=== PATIENT | female | born 1985 | race African-American/Black ===

== ENCOUNTER 2016-09-05 17:50 | Emergency (ER) | payer SELFPAY ==
[~2016-09-05] VITALS: Ht 165.1 cm; Wt 124.7 kg
[~2016-09-05 17:50] MED LIST: HYDR-1421; HYDR-2579
[2016-09-05 18:00] VITALS: BP 143/83
== END 2016-09-05 21:15 | disposition left against medical advice (07) ==
LOC: EDBD 17:50 → ER 17:56
DX: M79.604 Pain in right leg (principal); Z53.21 Procedure and treatment not carried out due to patient leaving prior to being seen by health care provider